=== PATIENT | male | born 1980 | race Caucasian/White ===

== ENCOUNTER 2019-03-22 08:09 | Outpatient (CLI) | payer MEDICARE, MEDICAID ==
--- NOTE | 2019-03-22 10:10 | RAD ---
BARIUM ESOPHAGRAM: HISTORY: Dysphagia, esophageal stricture. FINDINGS: Exam is limited due to patient's inability to drink satisfactory amounts of contrast. FINDINGS: Unobstructed flow of contrast is seen through the esophagus into the stomach. No obstructing mass is identified. There is a suggestion of some narrowing in the cervical esophagus. The patient is unable to swallow pills. No GE reflux is demonstrated during the Valsalva maneuver. IMPRESSION: Probable narrowing in the cervical esophagus. POS: OSIEL
== END 2019-03-22 08:10 | disposition home or self-care (01) ==
LOC: RAD 08:09
PROVIDERS: ATTEND Internal Medicine
DX: K22.2 Esophageal obstruction (principal); R13.10 Dysphagia, unspecified
CPT/HCPCS: 74220

== ENCOUNTER 2019-04-04 06:38 | Day surgery (SDC) | payer MEDICARE ==
[2019-04-03 09:42] VITALS: BMI 35.2
[2019-04-04] MEDS ORDERED: Ketamine 50 MG/ML (10ML VIAL) ONE (07:55)
[2019-04-04] MEDS ORDERED: Midazolam HCl 2 mg/2 ml Vial ONE (08:45)
[2019-04-04] MEDS ORDERED: Ondansetron PF 4 MG/2 ML Vial ONE (12:26)
[2019-04-04] MEDS ORDERED: PROPOFOL 200 MG/20 ML VIAL ONE (12:26)
[2019-04-04] MEDS ORDERED: Succinylcholine Chloride 20 MG/ML 10 ml SYRINGE FS ONE (12:26)
[2019-04-04] MEDS ORDERED: Dexamethasone 20 MG/5 ML VIAL ONE (12:26)
--- NOTE | 2019-04-04 17:12 | OP ---
DATE OF PROCEDURE: 04/04/2019 ADMINISTRATIVE OFFICE SPECIALIST SURGEON: None. PROCEDURE PERFORMED: Esophagogastroduodenoscopy with balloon dilation of the esophagus and biopsies. INDICATION: 1. Dysphagia. 2. Upper esophageal stricture. FINDINGS: After discussion of the risks, benefits, and alternatives of the procedure, informed consent was obtained and witnessed. Pre-endoscopic cardiopulmonary examination was satisfactory. Time-out was performed before sedation was achieved. Sedation was achieved with Anesthesia assistance in the endoscopy unit, with the patient endotracheally intubated under general anesthesia. A Pentax adult upper endoscope was placed into the oropharynx and advanced to the level of the upper esophageal sphincter. The patient has a very tight stricture at the level of the upper esophageal sphincter and the endoscope was unable to pass beyond this area. Through the scope balloon dilator to serially dilate this stricture starting at 10 mm and going up to 12 mm. Following dilation, the endoscope was able to pass beyond the stricture. There was extensive mucosal disruption at this area with dilation to 12 mm. The remainder of the esophagus has an appearance suggestive of diffuse mild edema and also linear furrowing, suggestive of eosinophilic esophagitis. I obtained multiple biopsies from the midesophagus to assess for possible eosinophilic esophagitis. The endoscope was advanced beyond the GE junction and into the stomach. Forward and retroflexed views of the entire gastric mucosa were obtained. There is fairly diffuse spotty erythema throughout the stomach as well as some subtle nodularity of the mucosa throughout the antrum, consistent with nodular gastritis. Biopsies were obtained from the gastric antrum, body, and fundus to evaluate for possible H. pylori infection. The endoscope was then advanced through the pylorus and into the first and second portions of the duodenum, which appeared normal. At this point, the upper endoscope was completely withdrawn and the patient allowed to recover. The patient tolerated the procedure well. There were no immediate postprocedure complications. IMPRESSION: 1. Severe upper esophageal stricture at the level of the upper esophageal sphincter at 15 cm. Successfully balloon dilated serially from 10 mm up to 12 mm, with extensive mucosal disruption of the stricture. 2. Linear furrowing throughout the esophagus, suggestive of eosinophilic esophagitis, biopsy of the midesophagus. 3. Diffuse nonerosive gastritis, biopsy to rule out Helicobacter pylori. RECOMMENDATIONS: 1. Advance diet as tolerated. Chew food thoroughly. 2. Prevacid SoluTab 30 mg twice daily. 3. Follow up results of esophageal and gastric biopsies. 4. Plan to repeat EGD with dilation in 1 month, again under general anesthesia with endotracheal intubation. Job ID: [id number]
== END 2019-04-04 10:50 | disposition home or self-care (01) ==
LOC: SDC 06:38
PROVIDERS: ATTEND Internal Medicine
PROC: 0DB68ZX Excision of Stomach, Via Natural or Artificial Opening Endoscopic, Diagnostic (ICD-10-PCS; principal; 2019-04-04)
PROC: 0D758ZZ Dilation of Esophagus, Via Natural or Artificial Opening Endoscopic (ICD-10-PCS; 2019-04-04)
PROC: 0DB28ZX Excision of Middle Esophagus, Via Natural or Artificial Opening Endoscopic, Diagnostic (ICD-10-PCS; 2019-04-04)
DX: K22.2 Esophageal obstruction (principal); K20.0 Eosinophilic esophagitis; K29.50 Unspecified chronic gastritis without bleeding; B96.81 Helicobacter pylori [H. pylori] as the cause of diseases classified elsewhere; E78.5 Hyperlipidemia, unspecified; G47.30 Sleep apnea, unspecified; Q90.9 Down syndrome, unspecified; Z79.899 Other long term (current) drug therapy
CPT/HCPCS: 88305; 88312; 88313; 88342; J2250

== ENCOUNTER 2019-05-14 06:36 | Day surgery (SDC) | payer MEDICARE ==
[2019-05-13 11:56] VITALS: BMI 35.2
[2019-05-14] MEDS ORDERED: Ketamine 50 MG/ML (10ML VIAL) ONE (09:03)
--- NOTE | 2019-05-14 13:49 | OP ---
DATE OF PROCEDURE: 05/14/2019 CLEAT FEEDER SURGEON: None. PROCEDURES PERFORMED: Esophagogastroduodenoscopy with esophageal dilation and gastric biopsies. INDICATIONS: 1. Upper esophageal stricture, presenting for repeat esophageal dilation. 2. Eosinophilic esophagitis. 3. History of H pylori, recently treated with triple therapy. MEDICATIONS: See Anesthesia record. FINDINGS: After discussion of the risks, benefits, and alternatives of the procedure, informed consent was obtained and witnessed. Pre-endoscopic cardiopulmonary examination was satisfactory. Time-out was performed before sedation was achieved. Sedation was achieved with Anesthesia assistance in the endoscopy unit. The patient was endotracheally intubated under general anesthesia and placed in the left lateral decubitus position. A Pentax adult upper endoscope was placed into the oropharynx and passed through the cricopharyngeus under direct visualization. The patient has a severe fibrotic stricture in the upper esophagus from 15 to 20 cm. The endoscope was able to traverse this stricture with some difficulty and mucosal tearing with endoscope passage. The remainder of the esophagus was examined. There were still changes consistent with the eosinophilic esophagitis, particularly in the upper and midesophagus, but overall the appearance is improved from the prior exam. The area of the GE junction appears normal. The endoscope was advanced into the stomach. Forward and retroflexed views of the entire gastric mucosa were obtained. The patient still has significant moderate patchy erythema throughout the stomach with no erosions or ulcerations. Biopsies were obtained from the gastric antrum and body to assess for persistent H pylori infection. The endoscope was advanced through the pylorus and into the first and second portions of the duodenum, which appeared normal. The endoscope was then withdrawn back to the upper esophagus. We used a, through the scope, balloon to progressively dilate the upper esophageal stricture. We first dilated to 12 mm, then 13.5 mm, and then to 15 mm. The area was examined following dilation. There was extensive mucosal disruption of the entirety of the stricture. At this point, the upper endoscope was completely withdrawn and the patient allowed to recover. The patient tolerated the procedure well. There were no immediate postprocedure complications. IMPRESSION: 1. Severe stricture in the upper esophagus from 15 to 20 cm, serially dilated to 12 mm, then 13.5 mm, then 15 mm with extensive mucosal disruption. 2. Characteristic changes of eosinophilic esophagitis, improved from prior exam. 3. Patchy nonerosive gastritis, biopsied. RECOMMENDATIONS: 1. Advance diet as tolerated. 2. Follow up results of gastric biopsies. 3. Lansoprazole 30 mg twice daily. 4. Follow up in the GI clinic in 1 month. Job ID: [id number]
== END 2019-05-14 11:05 | disposition home or self-care (01) ==
LOC: SDC 06:36
PROVIDERS: ATTEND Internal Medicine
PROC: 0D758ZZ Dilation of Esophagus, Via Natural or Artificial Opening Endoscopic (ICD-10-PCS; principal; 2019-05-14)
PROC: 0DB68ZX Excision of Stomach, Via Natural or Artificial Opening Endoscopic, Diagnostic (ICD-10-PCS; 2019-05-14)
DX: K22.2 Esophageal obstruction (principal); K20.0 Eosinophilic esophagitis; K29.50 Unspecified chronic gastritis without bleeding; E78.00 Pure hypercholesterolemia, unspecified; Z79.899 Other long term (current) drug therapy
CPT/HCPCS: 88305; 88312

== ENCOUNTER 2019-10-05 20:30 | Outpatient (CLI) | payer MEDICARE, MEDICAID | END 2019-10-05 20:31 | disposition home or self-care (01) | LOC: SLEEPLAB 20:30 | PROVIDERS: ATTEND Family Medicine | DX: G47.33 Obstructive sleep apnea (adult) (pediatric) (principal); R53.83 Other fatigue; G31.84 Mild cognitive impairment of uncertain or unknown etiology; K21.9 Gastro-esophageal reflux disease without esophagitis; R06.83 Snoring; E66.9 Obesity, unspecified; Q90.9 Down syndrome, unspecified; Z68.35 Body mass index [BMI] 35.0-35.9, adult | CPT/HCPCS: 95811 ==

== ENCOUNTER 2021-09-06 10:19 | Outpatient (CLI) | payer MEDICARE, MEDICAID ==
[2021-09-06 20:45] LABS: SARS-CoV-2 PCR by NAA Not Detected (NotDetected)
== END 2021-09-06 10:20 | disposition home or self-care (01) ==
LOC: LABBT 10:19
PROVIDERS: ATTEND Internal Medicine
DX: Z01.812 Encounter for preprocedural laboratory examination (principal); K20.0 Eosinophilic esophagitis; K22.2 Esophageal obstruction; Z20.822 Contact with and (suspected) exposure to COVID-19
CPT/HCPCS: U0003; U0005

== ENCOUNTER 2021-09-09 06:21 | Day surgery (SDC) | payer MEDICARE, MEDICAID ==
[2021-08-31 13:56] VITALS: BMI 36.0
[2021-09-09] MEDS ORDERED: Ketamine 50 MG/ML (10ML VIAL) ONE (07:27)
[2021-09-09] MEDS ORDERED: Midazolam HCl 2 mg/2 ml Vial ONE (08:40)
[2021-09-09] MEDS ORDERED: Rocuronium Bromide 10 MG/ML (10ML VIAL) ONE (08:44)
[2021-09-09] MEDS ORDERED: PROPOFOL 200 MG/20 ML VIAL ONE (08:44)
[2021-09-09] MEDS ORDERED: Dexamethasone 20 MG/5 ML VIAL ONE (08:44)
[2021-09-09] MEDS ORDERED: Lidocaine 1% PF 5 ML VIAL ONE (08:44)
[2021-09-09] MEDS ORDERED: Ondansetron PF 4 MG/2 ML Vial ONE (08:44)
[2021-09-09] MEDS ORDERED: Succinylcholine 200 MG/10 ml SYRINGE FS ONE (08:44)
== END 2021-09-09 10:52 | disposition home or self-care (01) ==
LOC: SDC 06:21
PROVIDERS: ATTEND Internal Medicine
PROC: 0D758ZZ Dilation of Esophagus, Via Natural or Artificial Opening Endoscopic (ICD-10-PCS; principal; 2021-09-09)
DX: K22.2 Esophageal obstruction (principal); K20.0 Eosinophilic esophagitis; E78.00 Pure hypercholesterolemia, unspecified; E03.9 Hypothyroidism, unspecified; G47.30 Sleep apnea, unspecified; Z79.890 Hormone replacement therapy; Z79.899 Other long term (current) drug therapy
CPT/HCPCS: J1100; J2250; J2405; J2704

== ENCOUNTER 2022-11-28 06:55 | Day surgery (SDC) | payer OTHER, MEDICAID ==
[2022-11-25 09:22] VITALS: BMI 31.3
[2022-11-28] MEDS ORDERED: Famotidine/PF 20 mg/2ml Vial ONE ×2 (08:15→08:38)
[2022-11-28] MEDS ORDERED: Dexmedetomidine 200 MCG/2 ML VIAL ONE (08:38)
[2022-11-28] MEDS ORDERED: fentaNYL 50 mcg/mL 1 mL Vial ONE (08:38)
[2022-11-28] MEDS ORDERED: Rocuronium Bromide 10 MG/ML (10ML VIAL) ONE (08:41)
[2022-11-28] MEDS ORDERED: PROPOFOL 200 MG/20 ML VIAL ONE (08:41)
[2022-11-28] MEDS ORDERED: Glycopyrrolate 0.2 MG/ML 5 ML SYRINGE ONE (08:41)
[2022-11-28] MEDS ORDERED: NEOSTIGMINE 3 MG/3 ML SYR 3 MG/3 ML SYRINGE ONE (08:41)
[2022-11-28] MEDS ORDERED: Lidocaine 1% PF 5 ML VIAL ONE (08:41)
[2022-11-28] MEDS ORDERED: Ondansetron PF 4 MG/2 ML Vial ONE (08:41)
[2022-11-28] MEDS ORDERED: Succinylcholine Chloride 100 MG/5 ML SYRINGE FS ONE (08:41)
== END 2022-11-28 10:41 | disposition home or self-care (01) ==
LOC: SDC 06:55
PROVIDERS: ATTEND Internal Medicine
PROC: 0D718ZZ Dilation of Upper Esophagus, Via Natural or Artificial Opening Endoscopic (ICD-10-PCS; principal; 2022-11-28)
DX: K22.2 Esophageal obstruction (principal); K20.0 Eosinophilic esophagitis; E78.00 Pure hypercholesterolemia, unspecified; E03.9 Hypothyroidism, unspecified; G47.30 Sleep apnea, unspecified; Z79.2 Long term (current) use of antibiotics; Z79.890 Hormone replacement therapy; Z79.899 Other long term (current) drug therapy
CPT/HCPCS: 43249; J3010; J2405; J2704; S0028

== ENCOUNTER 2023-04-10 06:04 | Day surgery (SDC) | payer OTHER, MEDICAID ==
[2023-04-06 16:03] VITALS: BMI 32.3
[2023-04-10] MEDS ORDERED: fentaNYL 50 mcg/mL 1 mL Vial ONE (07:32)
[2023-04-10] MEDS ORDERED: Lidocaine 1% PF 5 ML VIAL ONE (08:12)
[2023-04-10] MEDS ORDERED: Ondansetron PF 4 MG/2 ML Vial ONE (08:12)
[2023-04-10] MEDS ORDERED: PROPOFOL 200 MG/20 ML VIAL ONE (08:12)
[2023-04-10] MEDS ORDERED: Succinylcholine 200 MG/10 ml SYRINGE FS ONE (08:12)
== END 2023-04-10 09:35 | disposition home or self-care (01) ==
LOC: SDC 06:04
PROVIDERS: ATTEND Internal Medicine
PROC: 0D758ZZ Dilation of Esophagus, Via Natural or Artificial Opening Endoscopic (ICD-10-PCS; principal; 2023-04-10)
DX: K22.2 Esophageal obstruction (principal); K20.0 Eosinophilic esophagitis; E78.00 Pure hypercholesterolemia, unspecified; E03.9 Hypothyroidism, unspecified; G47.00 Insomnia, unspecified; E07.9 Disorder of thyroid, unspecified; Z98.890 Other specified postprocedural states; Z79.890 Hormone replacement therapy; Z79.899 Other long term (current) drug therapy
CPT/HCPCS: 43249; J3010; J2405; J2704